=== PATIENT | male | born 1980 | race Caucasian/White ===

== ENCOUNTER 2023-10-23 12:28 | Inpatient (IN) | payer OTHER ==
[~2023-10-23] VITALS: Ht 182.9 cm; Wt 106.5 kg
[2023-10-23 13:55] LABS: Eosinophils # (auto) 0.5 10 ^3/uL (0-0.8); Mean Corpuscular Hgb Conc. 32.1 g/dL (32.0-36.0); Monocytes # (auto) 0.5 10 ^3/uL (0-1.3); Nucleated Red Blood Cells % 0.1 %; Red Cell Distribution Width 14.9 % (11.8-14.3)
[2023-10-23 13:57] LABS: Basophils # (auto) 0 10 ^3/uL (0-0.2); Basophils % (auto) 0.9 % (0.0-2.0); Eosinophils % (auto) 8.5 % (0.0-7.0); Hematocrit 37.9 % (41.0-53.0); Hemoglobin 12.2 g/dL (13.5-17.5); Mean Corpuscular Hemoglobin 29.9 pg (28.0-32.0); Monocytes % (auto) 8.5 % (0.0-12.0); Neutrophils # (auto) 3.5 10 ^3/uL (1.6-8.6); Neutrophils % (auto) 64.1 % (37.0-80.0); Red Blood Cells 4.07 10^6/uL (4.5-5.90); White Blood Cell 5.4 10^3/uL (4.4-10.8)
[2023-10-23 14:03] LABS: Anion Gap 9 (5-15); Carbon Dioxide 22 mmol/L (20-30); Chloride 104 mmol/L (98-107); Potassium 4.5 mmol/L (3.5-5.1); Sodium 135 mmol/L (136-145)
[2023-10-23 14:04] LABS: Calcium 9.3 mg/dL (8.5-10.1)
[2023-10-23 14:09] LABS: BUN/Creatinine Ratio 10.1 (10.0-20.0); Blood Urea Nitrogen 8 mg/dL (9-23); Glucose 98 mg/dL (74-106)
[2023-10-23 14:36] LABS: Erythrocyte Sedimentation Rate 72 mm/hr (0-20)
[2023-10-23] MEDS ORDERED: NITROGLYCERIN 0.4 MG SL TAB SL PRN (15:15)
[2023-10-23] MEDS ORDERED: MORPHINE SULFATE INJ 2 MG/ml SYRG IV PRN (15:15)
[2023-10-23] MEDS ORDERED: VANCOMYCIN PER PHARMACY 0 MG IV SCH (15:15)
[2023-10-23] MEDS: MORPHINE SULFATE 4 MG/ML SYR/VIAL IV ONE (16:54)
[2023-10-23] MEDS: cefTRIAXone 1GM/50ML D5W 50 ML IV ONE (16:54)
[2023-10-23] MEDS: ONDANSETRON HCL 4 MG/2 ML VIAL IV ONE (16:54)
[2023-10-23 17:05] VITALS: PULSE 72; RESP 18; O2SAT 95
[2023-10-23] MEDS: VANCOMYCIN 1GM/200ML 200 ML IV ONE ×2 (20:39→23:26)
[2023-10-23] MEDS: HYDROcodone-ACET 10/325MG TAB PO PRN (22:54)
[2023-10-23 23:00] VITALS: PULSE 78; RESP 16; O2SAT 97
[2023-10-24] VITALS (7 sets, daily range): BP systolic 97–114; BP diastolic 59–64; PULSE 56–75; RESP 16–20; TEMP 97.9–98.5; O2SAT 95–100
[2023-10-24 05:39] LABS: Chloride 105 mmol/L (98-107); Potassium 4.1 mmol/L (3.5-5.1); Sodium 138 mmol/L (136-145)
[2023-10-24 05:40] LABS: Anion Gap 6 (5-15); Calcium 8.9 mg/dL (8.7-10.4); Carbon Dioxide 27 mmol/L (20-30)
[2023-10-24 05:45] LABS: BUN/Creatinine Ratio 18.2 (10.0-20.0); Blood Urea Nitrogen 14 mg/dL (9-23); Glucose 98 mg/dL (74-106)
[2023-10-24] MEDS: ENOXAPARIN SOD 40 MG/0.4 ML SYRINGE SC SCH (11:21)
[2023-10-24] MEDS: VANCOMYCIN 750mg/150ml 150 ML IV SCH (11:21)
[2023-10-24] MEDS: VENLAFAXINE HCL 37.5MG TABLET PO SCH (22:02)
[2023-10-25 05:00] VITALS: BP_SYST 109; BP_SYST 114; BP_DIAS 62; BP_DIAS 69; PULSE 73; PULSE 77; RESP 16; TEMP 97.4; TEMP 97.6; O2SAT 93; O2SAT 98
[2023-10-25 07:30] VITALS: PULSE 67
[2023-10-25 07:50] VITALS: BP 105/61; PULSE 67; RESP 17; TEMP 98.7; O2SAT 93
[2023-10-25] MEDS: CITALOPRAM HYDROBR 20 MG TAB PO SCH (10:03)
[2023-10-25 11:51] VITALS: BP 120/60; PULSE 68; RESP 16; TEMP 98.6; O2SAT 92
[2023-10-25] MEDS: VANCOMYCIN 750mg/150ml 150 ML IV SCH (13:43)
[2023-10-25 16:40] VITALS: BP 92/45; PULSE 62; RESP 16; TEMP 97.5; O2SAT 93
[2023-10-25] MEDS: VANCOMYCIN 1GM/200ML 200 ML IV SCH (21:07)
[2023-10-25 22:00] VITALS: BP 105/63; PULSE 65; RESP 16; TEMP 98.2; O2SAT 95
[2023-10-26 05:00] VITALS: BP 104/71; PULSE 65; RESP 16; TEMP 98.6; O2SAT 96
[2023-10-26 08:15] VITALS: BP 107/65; PULSE 63; RESP 20; TEMP 98
[2023-10-26 09:00] VITALS: BP 107/65; PULSE 63; RESP 20; TEMP 98; O2SAT 98
[2023-10-26 13:00] VITALS: BP 101/62; PULSE 71; RESP 20; TEMP 98.1; O2SAT 91
[2023-10-26 17:00] VITALS: BP 105/64; PULSE 77; RESP 20; TEMP 97.8; O2SAT 100
[2023-10-26 22:00] VITALS: BP 102/63; PULSE 60; RESP 17; TEMP 98.3; O2SAT 99
[2023-10-27 05:00] VITALS: BP 114/69; PULSE 53; RESP 16; TEMP 98.3; O2SAT 94
[2023-10-27 08:30] VITALS: BP 96/45; PULSE 66; RESP 12; TEMP 98.5; O2SAT 93
[2023-10-27 09:00] VITALS: BP 96/45; PULSE 66; RESP 12; TEMP 98.5; O2SAT 93
[2023-10-27 13:00] VITALS: BP 117/70; PULSE 61; RESP 18; TEMP 97.7; O2SAT 96
[2023-10-27 17:00] VITALS: BP 101/67; PULSE 66; RESP 20; TEMP 98.4; O2SAT 96
[2023-10-27 22:00] VITALS: BP 112/63; PULSE 68; RESP 18; TEMP 98.3; O2SAT 96
[2023-10-28] VITALS (7 sets, daily range): BP systolic 97–104; BP diastolic 58–68; PULSE 53–62; RESP 16–18; TEMP 98–98.8; O2SAT 94–99
[2023-10-29] VITALS (7 sets, daily range): BP systolic 101–113; BP diastolic 56–68; PULSE 57–66; RESP 14–20; TEMP 97.6–98.2; O2SAT 93–99
[2023-10-29] MEDS: ALPRAZolam 0.25 MG TAB PO PRN (18:22)
[2023-10-29] MEDS: TRIAMCINOLONE ACET0.5% TOPICAL CRE 15GM TOP SCH (22:00)
[2023-10-30] VITALS (7 sets, daily range): BP systolic 107–110; BP diastolic 67–77; PULSE 56–84; RESP 14–18; TEMP 98–98.7; O2SAT 92–98
[2023-10-31] VITALS (7 sets, daily range): BP systolic 92–126; BP diastolic 51–70; PULSE 58–70; RESP 16–20; TEMP 97.4–98.4; O2SAT 93–100
[2023-11-01 05:00] VITALS: BP 103/61; PULSE 52; RESP 16; TEMP 98.2; O2SAT 96
[2023-11-01 05:45] LABS: Basophils # (auto) 0.1 10 ^3/uL (0-0.2); Basophils % (auto) 1.9 % (0.0-2.0); Eosinophils # (auto) 0.3 10 ^3/uL (0-0.8); Hematocrit 40.5 % (41.0-53.0); Hemoglobin 13.5 g/dL (13.5-17.5); Lymphocytes # (auto) 1.8 10 ^3/uL (0.4-5.4); Lymphocytes % (auto) 26.9 % (10.0-50.0); Mean Corpuscular Hemoglobin 29.9 pg (28.0-32.0); Mean Corpuscular Hgb Conc. 33.3 g/dL (32.0-36.0); Mean Corpuscular Volume 89.8 fL (80.0-100.0); Monocytes # (auto) 0.8 10 ^3/uL (0-1.3); Monocytes % (auto) 12.2 % (0.0-12.0); Neutrophils # (auto) 3.6 10 ^3/uL (1.6-8.6); Nucleated Red Blood Cells % 0.1 %; Red Blood Cells 4.51 10^6/uL (4.5-5.90); Red Cell Distribution Width 14.5 % (11.8-14.3); White Blood Cell 6.7 10^3/uL (4.4-10.8)
[2023-11-01 05:50] LABS: Anion Gap 7 (5-15); Carbon Dioxide 25 mmol/L (20-30); Chloride 105 mmol/L (98-107); Potassium 3.8 mmol/L (3.5-5.1); Sodium 137 mmol/L (136-145)
[2023-11-01 05:51] LABS: Calcium 9.3 mg/dL (8.5-10.1)
[2023-11-01 05:55] LABS: Glucose 90 mg/dL (74-106)
[2023-11-01 05:56] LABS: BUN/Creatinine Ratio 19.7 (10.0-20.0); Blood Urea Nitrogen 14 mg/dL (9-23)
[2023-11-01 08:25] VITALS: BP 123/63; PULSE 61; RESP 16; TEMP 98.3; O2SAT 99
[2023-11-01 12:25] VITALS: BP 116/73; PULSE 68; RESP 16; TEMP 97.9; O2SAT 98
[2023-11-01 16:40] VITALS: BP 108/72; PULSE 63; RESP 17; TEMP 98; O2SAT 96
[2023-11-01 20:00] VITALS: RESP 18
[2023-11-01 22:00] VITALS: BP 104/63; PULSE 56; RESP 18; TEMP 97.6; O2SAT 100
[2023-11-02 08:35] VITALS: BP 114/68; PULSE 59; RESP 17; TEMP 98.1; O2SAT 96
[2023-11-02 16:45] VITALS: BP 109/72; PULSE 65; RESP 17; TEMP 98.4; O2SAT 97
[2023-11-02 20:00] VITALS: BP 107/65; PULSE 58; RESP 18; TEMP 97.7
[2023-11-02 23:51] VITALS: BP 107/65; PULSE 58; RESP 18; TEMP 97.7; O2SAT 95
[2023-11-03 05:00] VITALS: BP 113/67; PULSE 58; RESP 15; TEMP 98.3; O2SAT 98
[2023-11-03 08:30] VITALS: BP 126/69; PULSE 65; RESP 16; TEMP 97.8
[2023-11-03 08:47] VITALS: BP 126/69; PULSE 65; RESP 16; TEMP 97.8; O2SAT 97
[2023-11-03] MEDS ORDERED: BACDST PO (12:55)
[2023-11-03 13:00] VITALS: BP 120/78; PULSE 68; RESP 18; TEMP 98; O2SAT 99
== END 2023-11-03 17:45 | DRG 603 ==
LOC: ER 12:28 → EDUNIT# 12:28 → EDBD 12:28 → OVERFLOW 15:14 → EEVIPCON 15:14 → CENTRAL 10-24 08:41
PROVIDERS: ADMIT Internal Medicine; ATTEND Internal Medicine
DX: L03.115 Cellulitis of right lower limb (principal); F32.A Depression, unspecified; F41.9 Anxiety disorder, unspecified; Z90.49 Acquired absence of other specified parts of digestive tract; Z22.322 Carrier or suspected carrier of Methicillin resistant Staphylococcus aureus
CPT/HCPCS: 36415; 73700; 73718; 73721; 80048; 80202; 82565; 85025; 85652; 87077; 87186; 87205; 93971; G0378; J2405